=== PATIENT | male | born 1950 | race Caucasian/White ===

== ENCOUNTER → 2021-03-04 | Outpatient (CLI) | payer MEDICARE, OTHER ==
--- NOTE | 2021-03-05 11:52 | CARD ---
MR#: [id number] Date of Study: 03/04/2021 Ordering Physician: KOBE CONN, Referring Physician: KOBE CONN Tech: Katlyn Phan RDCS APPROVED REPORT EXAM: Two-dimensional and M-mode echocardiogram with Doppler and color Doppler. Other Information Quality : Fair Technically limited study due to body habitus. INDICATION Palpitations 2D DIMENSIONS Left Atrium(2D)3.2 (1.6-4.0cm)IVSd1.0 (0.7-1.1cm) Aortic Root(2D)3.2 (2.0-3.7cm)LVDd4.7 (3.9-5.9cm) LVOT Diameter2.1 (1.8-2.4cm)PWd1.0 (0.7-1.1cm) LVDs3.4 (2.5-4.0cm)FS (%) 28.0 % SV55.5 mlLVEF(%)54.2 (>50%) Aortic Valve AoV Peak Franky.145.2cm/sAoV VTI34.2cm AO Peak GR.8.4mmHgLVOT Peak Franky.132.7cm/s AO Mean GR.5mmHgAVA (VMAX)3.15cm2 MONY (VTI)3.10cm2 Mitral Valve MV E Dvdnnvsk31.7cm/sMV DECEL [id number] MV A Ipocjjlx34.3cm/sE/A Ratio0.9 Pulmonary Vein S1 Kpringah30.8cm/sD2 Ldjrbqpf56.7cm/s LEFT VENTRICLE The left ventricle is normal size. There is normal left ventricular wall thickness. The left ventricu lar systolic function is normal and the ejection fraction is within normal range. The Ejection Fracti on is 55-60%. There is normal LV segmental wall motion. Transmitral Doppler flow pattern is Grade I-a bnormal relaxation pattern. RIGHT VENTRICLE The right ventricle is normal size. The right ventricular systolic function is normal. ATRIA The left atrium size is normal. The right atrium size is normal. The interatrial septum is intact wit h no evidence for an atrial septal defect or patent foramen ovale as noted on 2-D or Doppler imaging. AORTIC VALVE The aortic valve is calcified with decreased leaflet motion. Doppler and Color Flow revealed trace ao rtic regurgitation. There is no significant aortic valvular stenosis. MITRAL VALVE The mitral valve is calcified but opens well. There is no evidence of mitral valve prolapse. There is no mitral valve stenosis. Doppler and Color Flow revealed no mitral valve regurgitation noted. TRICUSPID VALVE The tricuspid valve is normal in structure and function. Doppler and Color Flow revealed trace tricus pid regurgitation. There is no tricuspid valve stenosis. PULMONIC VALVE The pulmonic valve is not well visualized. GREAT VESSELS The aortic root is normal in size. The ascending aorta is not well seen. The IVC is normal in size an d collapses >50% with inspiration. PERICARDIAL EFFUSION There is no evidence of significant pericardial effusion. Critical Notification Critical Value: No <Conclusion> The left ventricular systolic function is normal and the ejection fraction is within normal range. Th e Ejection Fraction is 55-60%. There is normal LV segmental wall motion. The aortic valve is calcified with decreased leaflet motion. There is no significant aortic valvular stenosis by doppler evaluation. Signed by : Sergio Arce, Electronically Approved : 03/05/2021 11:52:17
== END ==
LOC: ECHO 10:53
PROVIDERS: ATTEND Internal Medicine Cardiovascular Disease
DX: I08.0 Rheumatic disorders of both mitral and aortic valves (principal)
CPT/HCPCS: 93306

== ENCOUNTER → 2021-04-10 | Outpatient (CLI) | payer MEDICARE ==
[~2021-04-10] VITALS: Ht 188 cm; Wt 90.7 kg
[~2021-04-10] MED LIST: REGADENOSON 0.4 MG/5 ML DISP.SYRIN. IV ONE
--- NOTE | 2021-04-10 13:52 | RAD ---
MR#: [id number] Date of Study: 04/10/2021 Ordering Physician: KOBE CONN, Referring Physician: HÉCTOR FALK Tech: EFRAIN Barrow ARRT (R) (N) APPROVED REPORT INTERPRETATION Stress EKG Conclusion: No evidence of stress induced EKG changes. Imaging Protocol IMAGE PROTOCOL: Rest Tc-99m/stress Tc-99m 1 day Rest: Stress: Viability: Radiopharm.Tc99m JzhblhdoxTf07h Sestamibi Dose9.8mCi 33mCi Img Date 04/10/2021 04/10/2021 Inj-Img [id number]. 60min. Rest Admin Site:IV - Left AntecubitalAdministrator:EFRAIN Barrow ARRT (R)(N) Stress Admin Site: IV - Left AntecubitalAdministrator: BRYN Archibald STRESS DATA End Diast. Vol.111.0mlLVEDV index BSA51.0ml End Syst. Vol.35.0mlLVESV index BSA16.0ml Myocardial Nwtq449.0gEject. Gkjmaqyi69.0% Stress Scores Regional WT3.00Summed WT15.00 Regional WM0.00Summed WM1.00 LV Perfusion There is a moderate to large sized basal to distal inferior wall fixed perfusion defect suggestive of prior infarct. No significant ischemia is noted. Wall Motion Mild inferior wall hypokinesis. LV Perf. Quant 17 Seg. SSS3.00 17 Seg. SRS3.00 17 Seg. SDS1.00 Stress Defect Extent (% LAD)0.00Rest Defect Extent (% LAD)0.00Rev. Defect Extent (% LAD)0.00 Stress Defect Extent (% LCX) 0.00Rest Defect Extent (% LCX)0.00Rev. Defect Extent (% LCX)0.00 Stress Defect Extent (% RCA)14.40Rest Defect Extent (% RCA)26.70Rev. Defect Extent (% RCA)0.00 Stress Defect Extent (% VALDEZ)3.70Rest Defect Extent (% VALDEZ)5.90Rev. Defect Extent (% VALDEZ)0.20 Other Information Quality:Average Risk Assessment: Moderate Risk Conclusion 1. No evidence of stress-induced EKG changes 2. 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 Normal LV systolic function with ejection fraction of 60% 4. Moderate risk for future cardiovascular events. Signed by : Sergio Arce, Electronically Approved : 04/10/2021 13:52:15
== END ==
LOC: NM 09:11
PROVIDERS: ATTEND Internal Medicine Cardiovascular Disease
DX: I49.3 Ventricular premature depolarization (principal)
CPT/HCPCS: 78452; 93017; A9500; J2785

== ENCOUNTER → 2022-01-08 | Outpatient (CLI) | payer MEDICARE ==
[2022-01-08 10:06] LABS: CHOLESTEROL/HDL RATIO 4.7
--- NOTE | 2022-01-08 12:56 | RAD ---
MR#: [id number] Date of Study: 01/08/2022 Ordering Physician: KOBE POWELL, Referring Physician: KOBE POWELL, Tech: Kimberley Powell RDMS, RVT, RTR APPROVED REPORT Patient Location : OUT-PATIENT Indications Lower Extremity Edema : Bilateral Chronic Venous Insufficiency Greater Saphenous Veins (GSV) Significant venous relux noted in the RIGHT GSV at the following levels : Superficial Femoral Junctio n, Proximal Thigh, Mid Thigh, Distal Thigh, Proximal Calf, Mid Calf, Distal Calf Significant venous relux noted in the LEFT GSV at the following levels : Superficial Femoral Junction , Proximal Thigh, Mid Thigh, Distal Thigh, Proximal Calf, Mid Calf, Distal Calf Findings Grayscale images of superficial veins and saphenofemoral junctions bilateral lower extremities were g rossly unremarkable without any evidence of thrombus. Spectral waveform and color duplex analysis mt wed significant venous reflux involving bilateral greater saphenous veins. The lesser saphenous veins did not show any significant insufficiency bilaterally. The right greater saphenous vein measured 7.5 mm at the saphenofemoral junction and showed a signific ant reflux of 2.9 seconds. This vein showed significant reflux of greater than 1 second from groin al l the way to the ankle. The left greater saphenous vein measured 11.1 mm at the saphenofemoral juncti on and showed a significant reflux of 2.9 seconds. This vein also showed significant reflux of greate r than 1 second from groin all the way to the ankle. Critical Notification Critical Value: No <Conclusion> Bilateral lower extremity venous reflux study showed significant insufficiency involving bilateral gr eater saphenous veins. Signed by : Kobe Powell, Electronically Approved : 01/08/2022 12:55:46
== END ==
LOC: US 08:39
PROVIDERS: ATTEND Internal Medicine Cardiovascular Disease
DX: I87.2 Venous insufficiency (chronic) (peripheral) (principal); E78.5 Hyperlipidemia, unspecified
CPT/HCPCS: 36415; 80061; 93970

== ENCOUNTER → 2022-03-31 | Outpatient (CLI) | payer MEDICARE ==
--- NOTE | 2022-03-31 15:15 | RAD ---
MR#: [id number] Date of Study: 03/31/2022 Ordering Physician: KOBE POWELL, Referring Physician: KOBE POWELL, Tech: Kimberley Powell RDMS, RVT, RTR APPROVED REPORT Bilateral Lower Extremity Venous Study for DVT Patient Location: OUT-PATIENT Indications Lower Extremity Edema: Bilateral Venous Insufficiency Findings Grayscale images of saphenofemoral junctions were grossly unremarkable without any evidence of thromb us. The common femoral, superficial femoral and popliteal veins bilaterally were fully compressible without any obvious thrombus. Spectral waveform and color duplex analysis was performed. Bilateral greater saphenous veins are successfully occluded s/p ablation therapy. The calf veins showed sponta neous flow bilaterally. No evidence of deep venous thrombosis. Critical Notification Critical Value: No <Conclusion> Bilateral lower extremity venous duplex scan showed successfully ablated greater saphenous veins with out any evidence of deep venous thrombosis. Signed by : Kobe Powell, Electronically Approved : 03/31/2022 15:14:56
== END ==
LOC: US 13:59
PROVIDERS: ATTEND Internal Medicine Cardiovascular Disease
DX: I87.2 Venous insufficiency (chronic) (peripheral) (principal); I87.323 Chronic venous hypertension (idiopathic) with inflammation of bilateral lower extremity
CPT/HCPCS: 93970